=== PATIENT | male | born 1970 | race Hispanic/Latino ===

== ENCOUNTER 2016-12-30 15:01 | Inpatient (IN) | payer MEDICAID ==
[2016-12-30 16:49] LABS: BASO % 0.2 % (0.0-2.0); EOS # 0.1 K/uL (0.0-0.7); EOS % 1.3 % (0.0-4.0); HEMATOCRIT 41.4 % (35.0-51.0); LYMPH # 3.2 K/uL (1.0-4.3); MEAN CELL VOLUME 91.9 fL (80.0-94.0); MEAN CORPUSCULAR HEMOGLOBIN 30.1 pg (27.0-31.0); MEAN CORPUSCULAR HGB CONC 32.8 g/dL (33.0-37.0); MEAN PLATELET VOLUME 8.4 fL (7.2-11.7); MONO # 0.5 K/uL (0.0-0.8); MONO % 5.3 % (0.0-10.0); NRBC % 0.1 % (0.0-2.0); RED CELL DISTRIBUTION WIDTH 15.7 % (11.5-14.5); WHITE BLOOD COUNT 9.2 K/uL (4.8-10.8)
[2016-12-30 16:50] LABS: RBC URINE 137 /hpf (0-3); URINE BACTERIA OCC (<OCC); URINE BILIRUBIN NEGATIVE (NEGATIVE); URINE BLOOD 3+ (NEGATIVE); URINE CALCIUM OXALATE CRYSTALS FEW /hpf (<OCC); URINE COLOR Yellow (YELLOW); URINE GLUCOSE (UA) NORMAL (Normal); URINE KETONE NEGATIVE (NEGATIVE); URINE LEUKOCYTE ESTERASE NEG Leu/uL (Negative); URINE PROTEIN NEGATIVE (NEGATIVE); URINE UROBILINOGEN NORMAL mg/dL (0.2-1.0); WBC URINE 4 /hpf (0-5)
[2016-12-30 17:00] LABS: CHLORIDE 102 mmol/L (98-107); POTASSIUM 4.5 mmol/L (3.6-5.2); SODIUM 141 mmol/L (132-148)
[2016-12-30 17:02] LABS: ALB/GLOB RATIO 0.9 (1.0-2.1); ALKALINE PHOSPHATASE 92 U/L (38-126); AST/SGOT 74 U/L (17-59); BILIRUBIN,TOTAL 0.7 mg/dL (0.2-1.3); BLOOD UREA NITROGEN 14 mg/dL (9-20); CARBON DIOXIDE 27 mmol/L (22-30); GFR AFRICAN-AMERICAN > 60; TOTAL PROTEIN 9.1 g/dL (6.3-8.3)
[2016-12-30 17:03] LABS: ALCOHOL SERUM < 10 mg/dl (0-10); ALT/SGPT 70 U/L (21-72); CALCIUM 9.8 mg/dl (8.6-10.4); GLUCOSE,RANDOM 78 mg/dL (75-110)
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
[2016-12-30] MEDS ORDERED: Aluminum Hydroxide/Magnesium Hydroxide Susp (30 mL) PO PRN (18:50)
[2016-12-30] MEDS ORDERED: Buprenorphine Hydrochloride 2 mg SL ONE ×2 (19:22→20:30)
--- NOTE | 2016-12-30 19:48 | PCM.BM ---
<JoeIveth - Last Filed: 12/30/16 19:46> Treatment Plan Problems - Problems identified on initial assessmt Opiate Withdrawal Date Initiated: 12/30/16 Time Initiated: 19:46 Assessment reference: NA Status: Active Priority: 1 Comment: UDS is (+) foor opiates Ineffective Coping Skills Date Initiated: 12/30/16 Time Initiated: 19:48 Assessment reference: NA Status: Active Priority: 2 Treatment assets and liabiliti Patient Assests: cooperative, ADL independent, good support system, negotiates basic needs, cognitively intact Patient Liabilities: substance abuse - Milieu Protocol Maintain good personal hygiene: daily Encourage regular showers, every shift Remind patient to perform daily oral care Conduct patient checks and document Observation sheet: Q15 minutes Maintain personal safety: every shift Educate patient to report safety concerns to staff, every shift Monitor environment for contraband/sharps Medication safety: Monitor for expected outcome, potential side effects: every shift, Assess barriers to learning: every shift, Assess readiness for medication education: every shift <Yonathan Corado - Last Filed: 12/31/16 22:57> - Diagnosis (1) Drug dependence Status: Acute Interventions: 12/31/16 22:56 * Assess 7x/week regarding severity of withdrawal * Educate regarding risks, benefits, side effects and alternatives of medications * Use Motivational Interviewing for abstinence * Use CBT for relapse prevention * Medication management for withdrawal symptoms * Encourage medication assisted treatment *
[2016-12-31] MEDS: Buprenorphine Hydrochloride 2 mg SL SCH (10:27)
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
[2017-01-01] MEDS: Buprenorphine Hydrochloride 2 mg SL SCH (10:19)
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
[2017-01-02] MEDS: Buprenorphine Hydrochloride 2 mg SL SCH (10:08)
--- NOTE | 2017-01-02 13:00 | PCM.PYCHPN ---
Psychiatric Progress Note - Psychiatric Progress Note Patient seen today, length of contact: 15 minutes Patient Chief Complaint: "I'm a little better" Problems Identified/Issues Discussed: The pt is seen, chart reviewed, case discussed with staff. The pt is compliant with medications and reports no side-effects. Symptoms are improving but needs more time to stabilize. After care discussed, support and psychoeducation given. Medication Change: Yes (detox changes daily) Medical Record Reviewed: Yes Mental Status Examination - Cognitive Function Orientation: Person, Place, Situation, Time Memory: Intact Attention: WNL Concentration: WNL Association: WNL Fund of Knowledge: WNL - Mood Mood: Neutral - Affect Affect: Other (Appropriate) - Speech Speech: Appropriate - Formal Thought Process Formal Thought Process: No Impairment - Suicidal Ideation Suicidal Ideation: No - Homicidal Ideation Homicidal Ideation: No Goal/Treatment Plan - Goal/Treatment Plan Need for Continued Stay: Remain at risks for inpatient hospitalization, Discharge may exacerbated symptoms, Severe functional impairment Progress Toward Problem(s) and Goals/Treatment Plan: Opioids: Subutex detox As needed meds and vitamins Attend groups and activities [place] for abstinence and CBT for relapse prevention Support and psychoeducation Consider and encourage MAT Refer to after care Anxiety: Gabapentin Support and CBT AFib: EKG normal ASA Estimated Date of D/C: 01/03/17
[2017-01-03] MEDS: Buprenorphine Hydrochloride 2 mg SL SCH (09:34)
--- NOTE | 2017-01-03 12:55 | PCM.PYCHPN ---
Psychiatric Progress Note - Psychiatric Progress Note Patient seen today, length of contact: 15 minutes Patient Chief Complaint: "I slept well" Problems Identified/Issues Discussed: Patient is evaluated with medical students present. Patient reports sleeping well and states "that's how I know I'm feeling better. " Patient reports that he is still improving and wants to stay until tomorrow, "to be on the safe side". The pt is seen, chart reviewed, case discussed with staff. Support given, CBT and WI used briefly No new symptoms reported, improving slowly and needs more time No SEs from medications, risks discussed. After care discussed again He still has some wdw sxs so he is granted another day to prevent relapse Medication Change: Yes (detox changes daily) Medical Record Reviewed: Yes Mental Status Examination - Cognitive Function Orientation: Person, Place, Situation, Time Memory: Intact Attention: WNL Concentration: WNL Association: WNL Fund of Knowledge: WNL - Mood Mood: Neutral - Affect Affect: Other (Appropriate) - Speech Speech: Appropriate - Formal Thought Process Formal Thought Process: No Impairment - Suicidal Ideation Suicidal Ideation: No - Homicidal Ideation Homicidal Ideation: No Goal/Treatment Plan - Goal/Treatment Plan Need for Continued Stay: Discharge may exacerbated symptoms, Severe functional impairment Progress Toward Problem(s) and Goals/Treatment Plan: Opioids: Subutex detox As needed meds and vitamins Attend groups and activities [place] for abstinence and CBT for relapse prevention Support and psychoeducation Consider and encourage MAT Anxiety: Gabapentin Support and CBT Estimated Date of D/C: 01/04/17
[2017-01-04 05:52] VITALS: RESP 18
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
[2017-01-04 08:57] VITALS: BP 128/86; PULSE 64; TEMP 98.3; O2SAT 100
[2017-01-04] MEDS ORDERED: Buprenorphine Hydrochloride 2 mg SL ONE (10:00)
--- NOTE | 2017-01-04 17:01 | CARD ---
APPROVED REPORT EKG Measurement Heart [id number] ID [id number] <Conclusion> Sinus bradycardia Otherwise normal ECG
== END 2017-01-04 11:00 | disposition home or self-care (01) | DRG 745 ==
LOC: C.ER 15:01 → C.7D 17:56
PROVIDERS: ADMIT Psychiatry & Neurology Psychiatry; ATTEND Psychiatry & Neurology Psychiatry
PROC: HZ2ZZZZ Detoxification Services for Substance Abuse Treatment (ICD-10-PCS; principal; 2016-12-30)
PROC: HZ59ZZZ Individual Psychotherapy for Substance Abuse Treatment, Supportive (ICD-10-PCS; 2016-12-30)
PROC: HZ46ZZZ Group Counseling for Substance Abuse Treatment, Psychoeducation (ICD-10-PCS; 2016-12-30)
DX: F11.23 Opioid dependence with withdrawal (principal); I48.91 Unspecified atrial fibrillation; F10.10 Alcohol abuse, uncomplicated; F41.9 Anxiety disorder, unspecified